=== PATIENT | female | born 1950 | race Caucasian/White ===

== ENCOUNTER → 2017-08-08 | Outpatient (CLI) | payer OTHER | END | disposition home or self-care (01) | DX: M16.12 Unilateral primary osteoarthritis, left hip (principal); R26.2 Difficulty in walking, not elsewhere classified; M25.552 Pain in left hip; M25.652 Stiffness of left hip, not elsewhere classified; M62.81 Muscle weakness (generalized); Z74.1 Need for assistance with personal care | CPT/HCPCS: 97161 GP; 97165 GO; 97530 GP; 97535 GO; G8978 GP; G8979 GP; G8980 GP; G8987 GO; G8988 GO; G8989 GO ==

== ENCOUNTER 2017-09-11 21:45 | Inpatient (IN) | payer OTHER ==
[~2017-09-11] VITALS: Ht 167.6 cm; Wt 98.7 kg
[~2017-09-11 21:45] MED LIST: ELAVIL50 MG PO; ESOMEPRAZOLE MA40 MG PO; TOPROL XL100 MG PO; VITAMIN B122500 MCG PO; VITAMIN D-32000 UNI2 PO
[2017-09-12 07:29] VITALS: BP 123/73
[2017-09-12] MEDS ORDERED: IRON18 MG PO (07:42)
[2017-09-12 13:07] LABS: HEMATOCRIT 38.2 % (36.0-46.0); HEMOGLOBIN 12.5 G/DL (11.9-15.5); MCHC 32.7 G/DL (30.0-36.0); MCV 91.8 FL (83-99); PLATELET COUNT 213 K/uL (156-360); RBC DIS.WIDTH-CV 13.2 % (11.8-14.6); RBC DIS.WIDTH-SD 44.8 % (39-53); RED BLOOD COUNT 4.16 M/uL (3.80-5.20); WHITE BLOOD COUNT 8.3 K/uL (4.1-10.2)
[2017-09-12 13:39] VITALS: BP 121/53
[2017-09-12 16:04] VITALS: BP 166/63
[2017-09-12 20:13] VITALS: BP 145/65
[2017-09-13 00:15] VITALS: BP 120/58
[2017-09-13 04:08] VITALS: BP 116/61
[2017-09-13 06:04] LABS: CHLORIDE 107 MEQ/L (99-109); CREATININE 0.9 MG/DL (0.6-1.3); GFR ESTIMATE (CALCULATED) > 59 mL/min/; GLUCOSE 146 mg/dL (70-99); POTASSIUM 4.7 MEQ/L (3.7-5.4); SODIUM 139 MEQ/L (136-147); UREA NITROGEN (BUN) 13 mg/dL (9-23)
[2017-09-13 08:00] VITALS: BP 136/67
[2017-09-13 11:30] VITALS: BP 112/56
[2017-09-13 13:10] LABS: HEMATOCRIT 38.9 % (36.0-46.0); HEMOGLOBIN 12.8 G/DL (11.9-15.5); MCV 92.8 FL (83-99)
[2017-09-13 16:15] VITALS: BP 108/56
[2017-09-14 00:12] VITALS: BP 135/64
[2017-09-14 04:17] VITALS: BP 110/54
[2017-09-14 07:22] VITALS: BP 109/59
[2017-09-14] MEDS ORDERED: SENNA PLUS TAB1 EACH PO (08:57)
[2017-09-14] MEDS ORDERED: CELECOXIB200 MG PO (08:57)
[2017-09-14] MEDS ORDERED: LOVENOX40 MG/0.4 SC (08:57)
[2017-09-14] MEDS ORDERED: ENDOCET 5-3251 EACH PO (08:57)
[2017-09-14 12:12] VITALS: BP 123/58
== END 2017-09-14 14:25 | DRG 470 ==
LOC: 2SOUTH → ENRESERV 21:45 → 2SOUTH 09-12 07:00 → 3WEST 09-12 13:20 → 2SOUTH 09-12 18:23 → 3WEST 09-14 14:25
PROVIDERS: Orthopaedic Surgery
PROC: 0SRB0JA Replacement of Left Hip Joint with Synthetic Substitute, Uncemented, Open Approach (ICD-10-PCS; principal; 2017-09-12)
DX: M16.12 Unilateral primary osteoarthritis, left hip (principal); M81.0 Age-related osteoporosis without current pathological fracture; K21.9 Gastro-esophageal reflux disease without esophagitis; G43.909 Migraine, unspecified, not intractable, without status migrainosus; E66.9 Obesity, unspecified; Z88.1 Allergy status to other antibiotic agents; Z88.5 Allergy status to narcotic agent; Z68.34 Body mass index [BMI] 34.0-34.9, adult
CPT/HCPCS: 73501; 73522; 80048; 85014; 85018; 85027; J0131; J0690; J1100; J1650; J2250; J2405; J7050; Q0175